=== PATIENT | female | born 1990 | race Caucasian/White ===

== ENCOUNTER → 2020-03-20 15:30 | Outpatient (BNVA) | payer MEDICAID, SELFPAY | PROVIDERS: Visit Provider Nurse Practitioner Women's Health | DX: Z01.419 Encounter for gynecological examination (general) (routine) without abnormal findings (principal); Z30.9 Encounter for contraceptive management, unspecified; Z30.41 Encounter for surveillance of contraceptive pills | CPT/HCPCS: 88175 ==

== ENCOUNTER → 2021-06-12 13:36 | Outpatient (BNVA) | payer MEDICAID, SELFPAY | PROVIDERS: Visit Provider Nurse Practitioner Women's Health | DX: N91.2 Amenorrhea, unspecified (principal); N92.6 Irregular menstruation, unspecified | CPT/HCPCS: 81025 ==

== ENCOUNTER 2021-07-01 08:13 | Outpatient (CLI) | payer MEDICAID, SELFPAY ==
--- NOTE | 2021-07-01 08:45 | US_ITS ---
WS: [id number] ULTRASOUND EARLY TECHNIQUE: Transabdominal sonography of the pelvis was performed. Followed by transvaginal sonography to better evaluate the uterus and ovaries. CLINICAL INFORMATION: Z78.9 - Other specified health status Beta hCG: Unknown. COMPARISON: None. FINDINGS: Small amount of fluid in the cervical canal. UTERUS AND GESTATIONAL SAC Intrauterine gestations: Retroverted uterus Single live intrauterine . Mean gestational sac diameter: 3.9 cm; Estimated gestational age: 10 weeks 3 days Estimated delivery January 24, 2022 Yolk sac: 0.5 cm. University rump length (CRL): 3.5 cm. heart motion: 164 BPM. Subchorionic hemorrhage: None. OVARIES Right ovary: Normal. Left ovary: Not seen FREE FLUID None. US/US OB <=14 wk fetus w transvag IMPRESSION: 1. Single live intrauterine . 2. Estimated gestational age; 10 weeks 3 days with estimated delivery January 3. Retroverted uterus 4. Gestational sac with yolk sac and pole. 5. Normal right ovary. Left ovary not visualized. 6. No free fluid in the cul-de-sac.
== END 2021-07-01 08:14 | disposition home or self-care (01) ==
LOC: RAD 08:18
PROVIDERS: Visit Provider Obstetrics & Gynecology
DX: Z36.87 Encounter for antenatal screening for uncertain dates (principal); Z3A.10 10 weeks gestation of pregnancy; N85.4 Malposition of uterus
CPT/HCPCS: 76801; 76817

== ENCOUNTER → 2021-07-03 10:43 | Outpatient (BNVA) | payer MEDICAID, SELFPAY | PROVIDERS: Visit Provider Nurse Practitioner Women's Health | DX: O99.211 Obesity complicating pregnancy, first trimester (principal) | CPT/HCPCS: 81000; 87086 ==

== ENCOUNTER → 2021-07-10 09:00 | Outpatient (BNVA) | payer MEDICAID, SELFPAY | PROVIDERS: Visit Provider Obstetrics & Gynecology | DX: Z34.80 Encounter for supervision of other normal pregnancy, unspecified trimester (principal) | CPT/HCPCS: 80307; 80500; 81000; 82950; 85025; 86592; 86762; 86803; 86850; 86870; 86900; 86902; 87086; 87340; 87491; 87591; 87661; 88175 ==

== ENCOUNTER → 2021-08-01 13:32 | Outpatient (BNVA) | payer MEDICAID, SELFPAY | PROVIDERS: Visit Provider Obstetrics & Gynecology | DX: Z34.80 Encounter for supervision of other normal pregnancy, unspecified trimester (principal) | CPT/HCPCS: 81000 ==

== ENCOUNTER → 2021-08-07 13:54 | Outpatient (BNVA) | payer MEDICAID, SELFPAY | PROVIDERS: Visit Provider Obstetrics & Gynecology | DX: Q99.8 Other specified chromosome abnormalities (principal) | CPT/HCPCS: 86886 ==

== ENCOUNTER → 2021-08-19 10:01 | Outpatient (BNVA) | payer MEDICAID, SELFPAY | PROVIDERS: Visit Provider Nurse Practitioner Women's Health | DX: O99.211 Obesity complicating pregnancy, first trimester (principal); Q99.8 Other specified chromosome abnormalities; Z87.59 Personal history of other complications of pregnancy, childbirth and the puerperium | CPT/HCPCS: 81000 ==

== ENCOUNTER → 2021-09-19 07:59 | Outpatient (BNVA) | payer MEDICAID, SELFPAY | PROVIDERS: Visit Provider Obstetrics & Gynecology | DX: Z34.80 Encounter for supervision of other normal pregnancy, unspecified trimester (principal) | CPT/HCPCS: 81000 ==

== ENCOUNTER 2021-10-13 12:30 | Outpatient (CLI) | payer MEDICAID, SELFPAY ==
[2021-10-13] VITALS (9 sets, daily range): BP systolic 110–132; BP diastolic 58–68; PULSE 75–88; RESP 15; TEMP 36.7; BMI 41.3
[2021-10-13 13:27] LABS: Basophils % 0.4 %; Eosinophils # 0.1 10^3/uL (0.0-0.8); Eosinophils % 0.6 %; Hematocrit 36.2 % (37.0-47.0); Hemoglobin 11.8 g/dL (11.5-15.3); Lymphocytes # 1.9 10^3/uL (0.8-4.8); Lymphocytes % 16.9 %; Mean Corpuscular HGB Conc 32.6 g/dL (30.0-36.0); Mean Corpuscular Hemoglobin 30.4 pg (28.0-34.0); Mean Corpuscular Volume 93.3 fl (81-99); Mean Platelet Volume 10.5 fL (7.4-10.4); Monocytes # 0.6 10^3/uL (0.2-0.9); Monocytes % 5.7 %; Neutrophils % 75.8 %; Nucleated Red Blood Cells % 0 %; Platelet Count 230 10^3/cmm (130-400); Red Blood Count 3.88 10^6/uL (4.1-5.3); Red Cell Distribution Width 13.6 % (12.1-15.1); White Blood Count 11.2 10^3/uL (4.0-10.0)
[2021-10-13 13:58] LABS: Add Urine Microscopic? YES; Bacteria Urine TRACE /hpf; Bilirubin Urine Neg (Negative); Blood Urine Trace (Negative); Glucose Urine UA Norm (Normal); Ketones Urine Negative (Negative); Leukocyte Esterase Urine Negative (Negative); Nitrate Urine Negative (Negative); Protein Urine Neg (Negative); RBC Urine 0-4 /hpf (0-2); Specific Gravity, Urine 1.015 (1.005-1.030); Urine Appearance Cloudy (CLEAR); Urine Color Straw (Yellow); Urobilinogen Urine Norm (Negative); WBC Urine 0-4 /hpf (0-5); pH Urine 5 (5-7)
[2021-10-13 13:59] LABS: Add Urine Culture? No
[2021-10-13 14:21] LABS: Urine Creatinine 43 mg/dL (28-217); Urine Protein Random 12 mg/dL
[2021-10-13 14:23] LABS: UPRO/UCREAT Ratio 0.28 mg/mg CR
[2021-10-13 14:24] LABS: Alanine Aminotransferase 21 U/L (0-33); Albumin Level 3.7 g/dL (3.5-5.2); Alkaline Phosphatase 76 IU/L (35-105); Anion Gap 18.6 (5-19); Aspartate Amino Transferase 17 U/L (0-32); Blood Urea Nitrogen 4 mg/dL (6-20); Calcium 8.4 mg/dL (8.5-10.5); Carbon Dioxide 19 mmol/L (22-29); Chloride 104 mmol/L (98-107); Globulin 2.9 g/dL (1.3-4.6); Glomerular Filtration Rate 145.9 mL/min (90-130); Glucose 80 mg/dL (65-115); Osmolality Calculated 282 mOsm/kg (285-295); Potassium 3.6 mmol/L (3.5-5.1); Sodium 138 mmol/L (136-145); Total Bilirubin 0.2 mg/dL (0.15-1.2); Total Protein 6.6 g/dL (6.6-8.7); Uric Acid 4.2 mg/dL (2.4-5.7)
== END 2021-10-13 14:51 | disposition home or self-care (01) ==
LOC: OPOB 12:37 → OBGYN 12:38
PROVIDERS: Visit Provider Obstetrics & Gynecology
DX: O16.9 Unspecified maternal hypertension, unspecified trimester (principal)
CPT/HCPCS: 36415; 80053; 81000; 81001; 82570; 84156; 84550; 85025; 87086; 99211

== ENCOUNTER → 2021-11-10 11:34 | Outpatient (BNVA) | payer MEDICAID, SELFPAY | PROVIDERS: Visit Provider Obstetrics & Gynecology | DX: Z34.80 Encounter for supervision of other normal pregnancy, unspecified trimester (principal) | CPT/HCPCS: 81000; 82950; 85025 ==

== ENCOUNTER → 2021-11-19 08:38 | Outpatient (BNVA) | payer MEDICAID, SELFPAY | PROVIDERS: Visit Provider Obstetrics & Gynecology | DX: Z34.80 Encounter for supervision of other normal pregnancy, unspecified trimester (principal) | CPT/HCPCS: 82951; 82952 ==

== ENCOUNTER → 2021-11-24 08:07 | Outpatient (BNVA) | payer MEDICAID, SELFPAY | PROVIDERS: Visit Provider Obstetrics & Gynecology | DX: Z34.80 Encounter for supervision of other normal pregnancy, unspecified trimester (principal) | CPT/HCPCS: 81000; 87086 ==

== ENCOUNTER → 2021-12-08 11:15 | Outpatient (BNVA) | payer MEDICAID, SELFPAY | PROVIDERS: Visit Provider Obstetrics & Gynecology | DX: Z34.80 Encounter for supervision of other normal pregnancy, unspecified trimester (principal) | CPT/HCPCS: 81000; 87086 ==

== ENCOUNTER → 2021-12-22 10:17 | Outpatient (BNVA) | payer MEDICAID, SELFPAY | PROVIDERS: Visit Provider Obstetrics & Gynecology | DX: Z34.80 Encounter for supervision of other normal pregnancy, unspecified trimester (principal) | CPT/HCPCS: 81000 ==

== ENCOUNTER → 2021-12-29 10:22 | Outpatient (BNVA) | payer MEDICAID, SELFPAY | PROVIDERS: Visit Provider Obstetrics & Gynecology | DX: Z34.80 Encounter for supervision of other normal pregnancy, unspecified trimester (principal); Q99.8 Other specified chromosome abnormalities; Z87.59 Personal history of other complications of pregnancy, childbirth and the puerperium | CPT/HCPCS: 81000; 87081 ==

== ENCOUNTER → 2022-01-05 11:18 | Outpatient (BNVA) | payer MEDICAID, SELFPAY | PROVIDERS: Visit Provider Obstetrics & Gynecology | DX: Z34.80 Encounter for supervision of other normal pregnancy, unspecified trimester (principal) | CPT/HCPCS: 81000; 84156; 87086 ==

== ENCOUNTER 2022-01-12 19:02 | Inpatient (IN) | payer MEDICAID, SELFPAY ==
[2022-01-12] VITALS (150 sets, daily range): BP systolic 104–183; BP diastolic 57–96; PULSE 81–114; RESP 17; TEMP 36.1–36.7; O2SAT 90–100; BMI 42.0
[2022-01-12 12:54] LABS: Basophils % 0.4 %; Eosinophils % 0.4 %; Hematocrit 36.6 % (37.0-47.0); Hemoglobin 11.7 g/dL (11.5-15.3); Lymphocytes # 2.2 10^3/uL (0.8-4.8); Lymphocytes % 19.7 %; Mean Corpuscular Hemoglobin 29.7 pg (28.0-34.0); Mean Corpuscular Volume 92.9 fl (81-99); Mean Platelet Volume 12.1 fL (7.4-10.4); Monocytes # 0.8 10^3/uL (0.2-0.9); Monocytes % 7.6 %; Neutrophils # 7.77 10^3/uL (1.8-7.7); Neutrophils % 70.7 %; Nucleated Red Blood Cells % 0 %; Platelet Count 186 10^3/cmm (130-400); Red Blood Count 3.94 10^6/uL (4.1-5.3); Red Cell Distribution Width 14.5 % (12.1-15.1)
[2022-01-12 13:16] LABS: Alanine Aminotransferase 15 U/L (0-33); Albumin Level 3.2 g/dL (3.5-5.2); Alkaline Phosphatase 191 IU/L (35-105); Anion Gap 16.1 (5-19); Aspartate Amino Transferase 21 U/L (0-32); Blood Urea Nitrogen 7 mg/dL (6-20); Calcium 9.3 mg/dL (8.5-10.5); Carbon Dioxide 19 mmol/L (22-29); Chloride 105 mmol/L (98-107); Globulin 3.4 g/dL (1.3-4.6); Glomerular Filtration Rate 145.9 mL/min (90-130); Glucose 96 mg/dL (65-115); Osmolality Calculated 280 mOsm/kg (285-295); Potassium 4.1 mmol/L (3.5-5.1); Sodium 136 mmol/L (136-145); Total Bilirubin 0.4 mg/dL (0.15-1.2); Total Protein 6.6 g/dL (6.6-8.7); Uric Acid 5.5 mg/dL (2.4-5.7)
[2022-01-12 13:29] LABS: Blood Urine 2+ (Negative); Glucose Urine UA Norm (Normal); Ketones Urine Negative (Negative); Nitrate Urine Negative (Negative); Protein Urine 1+ (Negative); Urine Appearance Hazy (CLEAR); Urine Color Yellow (Yellow); pH Urine 7 (5-7)
[2022-01-12 13:30] LABS: Add Urine Culture? No; Add Urine Microscopic? YES; Bacteria Urine 1+ /hpf; Bilirubin Urine Neg (Negative); Leukocyte Esterase Urine 2+ (Negative); Urobilinogen Urine Norm (Negative)
[2022-01-12 13:46] LABS: Urine Creatinine 96 mg/dL (28-217)
[2022-01-12 13:47] LABS: Urine Protein Random 182 mg/dL
[2022-01-12 14:14] LABS: Squamous Epithelial Cell Urine 15-25 /hpf (0-5)
[2022-01-12 14:44] LABS: Urine Creatinine 44 mg/dL (28-217)
[2022-01-12 15:01] LABS: UPRO/UCREAT Ratio 0.93 mg/mg CR; Urine Protein Random 41 mg/dL
[2022-01-12] MEDS: dextrose 5%-lactated ringers 1,000 ML 125 ML IV (15:53)
[2022-01-12] MEDS: magnesium sulfate premix 4 GM/100 ML PREMIX IV (15:53)
[2022-01-12] MEDS: magnesium sulfate premix 20 GM/500 ML BAG IV (16:25)
[2022-01-12] MEDS: oxytocin 30 UNIT/500 ML BAG IV (16:30)
[2022-01-12] MEDS: labetalol 5 mg/mL SDV 20mL 20 MG IVP (19:44)
[2022-01-12 21:12] LABS: Adenovirus Not Detected (NOT DETECT); Chlamydia Pneumoniae Not Detected (NOT DETECT); Coronavirus 229E,HKU1,NL63,OC4 Not Detected (NOT DETECT); Human Metapneumovirus Not Detected (NOT DETECT); Human Rhinovirus/Enterovirus Not Detected (NOT DETECT); Influenza A Not Detected (NOT DETECT); Influenza A H1 Not Detected (NOT DETECT); Influenza A H1-2009 Not Detected (NOT DETECT); Influenza A H3 Not Detected (NOT DETECT); Influenza B Not Detected (NOT DETECT); Mycoplasma Pneumoniae Not Detected (NOT DETECT); Parainfluenza Virus Type 1 Not Detected (NOT DETECT); Parainfluenza Virus Type 2 Not Detected (NOT DETECT); Parainfluenza Virus Type 3 Not Detected (NOT DETECT); Parainfluenza Virus Type 4 Not Detected (NOT DETECT); Respiratory Syncytial Virus A Not Detected (NOT DETECT); Respiratory Syncytial Virus B Not Detected (NOT DETECT); SARS-COV-2 Detected (NOT DETECT)
[2022-01-12 21:20] LABS: Magnesium Level (OB Only) 4.7 mg/dL (5.0-7.5)
[2022-01-13] VITALS (400 sets, daily range): BP systolic 117–185; BP diastolic 61–116; PULSE 83–193; RESP 16–17; TEMP 35.6–36.9; O2SAT 83–100
[2022-01-13] MEDS: magnesium sulfate premix 20 GM/500 ML BAG IV ×3 (02:04→23:12)
[2022-01-13] MEDS: alum-mag-hydroxide-sime 30 mL UDC PO (02:58)
[2022-01-13 03:39] LABS: Magnesium Level (OB Only) 5.6 mg/dL (5.0-7.5)
[2022-01-13] MEDS: dextrose 5%-lactated ringers 1,000 ML 70 ML IV (05:15)
[2022-01-13] MEDS: ondansetron 2 mg/ML SDV 2 mL 4 MG IVP (05:43)
--- NOTE | 2022-01-13 07:04 | PM.OPHPUD ---
Labor & Delivery H&P Update Date of Procedure: January 13, 2022 Date H&P Performed: 01/12/22 H&P update information: I have reviewed H&P completed within last 30 days, I have examined patient prior to procedure and Changes to prior documentation as noted here Changes to previous documentation: The patient has developed preeclampsia. She has elevated blood pressures and urine/protein creatinine ratio of 0.93. She will be admitted for induction of labor. Admission Diagnosis: iup @38w3d, mild preeclampsia Related Problem List Diagnoses (1) History of hemorrhage: (2) Anti-LKM antibody positive: (3) Obesity affecting : (4) Supervision of other normal : (5) Fetus conceived on control: (6) Mild preeclampsia:
[2022-01-13] MEDS: fentaNYL 50 mcg/mL INJ 2mL IVP (12:01)
[2022-01-13] MEDS: lidocaine 2% INJ 20 mL INJECTION (15:15)
[2022-01-13] MEDS: miSOPROStol 200 mcg Tablet 800 MCG PR (15:20)
--- NOTE | 2022-01-13 16:55 | P.PCNOB_ITS ---
Delivery Note: Date of delivery: January 13, 2022 - PRE-DELIVERY DIAGNOSIS: 31-year-old 2 para 1-0-0-1 at 38 weeks and 3 days Preeclampsia with severe blood pressure elevations Positive antibodies Obesity with a BMI of 42 history of hemorrhage with history of transfusion POST-DELIVERY DIAGNOSIS: Vaginal delivery on 01/13/2022 Preeclampsia with severe blood pressure elevations PROCEDURE: Vaginal delivery on 01/13/2022 ANESTHESIA: Local anesthesia with 2% lidocaine DELIVERING PHYSICIAN: Karly Nascimento FACOG PRE-DELIVERY COURSE: Ms. Sanabria is a 31-year-old 2 para 1-0-0-1 at 38 weeks and 2 days who was sent to labor and delivery on 01/12/2022 from clinic with an elevated blood pressure. She was evaluated on Labor and Delivery and blood pressures were all elevated in the 140s to 150s over 90s and lab work was all within normal limits except for protein creatinine ratio which was elevated at 0.9 confirming preeclampsia. She was started on magnesium sulfate for seizure prophylaxis and Cat catheter was placed. Decision was made to admit patient and induce. Cervix was 4 cm 40% effaced and -4 station, cephalic tracing was overall category 1. She was malik every 3 to 4 minutes however made no cervical change. She was started on Pitocin for induction of labor. Pitocin was continued from 4:30 PM to 5 AM on 01/13/2022 and was titrated to a maximum of 8 mIU. She made no cervical change. Pitocin was turned off and she was given the therapeutic rest for 4 hours. She did have a history significant for positive antibodies and also had a history of hemorrhage with her first delivery requiring 4 units of blood. As a result she was crossmatched for 2 units in the event that she would require more blood. -Blood pressures overall remained elevated but not in the severe range and she just required a single dose of IV labetalol during her induction process. Induction was continued on 01/13/2022 with Pitocin which was restarted at 8 AM and titrated to a maximum of 18 mIU. With this she started to have regular contractions and was uncomfortable and received IV fentanyl for pain control. She did have spontaneous rupture of membranes at 1252 with clear fluid. At this time she was 6 cm 80% and -2 station with a head well applied tracing remained category 1. She made rapid cervical change after this and was fully dilated at 3 PM and was set up in lithotomy position. DELIVERY NOTE: She was set up in lithotomy position and was pushing effectively. She was noted to be +3 station and continued pushing well. The head delivered in THOMAS position, nuchal cord x1 was present. It was tight and unable to be reduced .The shoulders and rest of the body followed with her next push. The baby's mouth and nose were suctioned and the baby was placed on the mother's belly. Once cord pulsations stopped the cord was clamped and cut. The placenta delivered spontaneously intact with membranes and was discarded. The fundus was noted to be boggy. She was given a dose of Hemabate and 800 mcg of Cytotec was placed per rectum and uterine massage was continued and with this the fundal tone improved and bleeding decreased. The vagina and cervix were inspected and no cervical or sulcal lacerations were noted. She had a first-degree vaginal laceration was repaired with a [id number] suture. She had periclitoral tear which was repaired with 3-0 Vicryl on an SH needle in a continuous interlocking fashion and good hemostasis and reapproximation was obtained. Baby girl born at 3:07 PM on 01/13/2022 with 8/9, weighing 8 pounds 9 ounces, 21 inches long. Placenta was delivered at 3:13 PM on 01/13/2022 value . Cotyledons were intact , centrally inserted umbilical cord with 3 vessels noted. Estimated blood loss 400 mL. Complications-none, both baby and mother were left to recover in a stable condition. Plan is for patient to receive 24 hours of magnesium sulfate . This documentation was created by [employer] organizational consultant software (known for inherent organizational consultant error). Every effort was made to assure accuracy of organizational consultant. Any obvious errors or omissions should be clarified with the author of the document. History History History 2 Term 1 Miscarriages/Ectopic 0 0 Living Children 1 Coding Level of Care Code Acute Pearl Stringer for Nereida Major
[2022-01-13] MEDS: HYDROcodone-acetaminophen 5-325 mg Tablet PO (17:39)
[2022-01-13] MEDS: docusate sodium 100 mg Capsule PO (17:39)
[2022-01-13 18:03] LABS: Magnesium Level (OB Only) 6.3 mg/dL (5.0-7.5)
--- NOTE | 2022-01-13 18:50 | PC.NURSE ---
changed pad, moderately saturated, pad been on pt since delivery 1507, no clots
[2022-01-13] MEDS: carboprost tromethamine 250 mcg/mL Amp IM (20:07)
--- NOTE | 2022-01-13 20:31 | PC.NURSE ---
Dr. Nascimento called to notify this nurse that Dr. Nava will be covering for the night and she also reminded this nurse of the protocols in place. Dr. Nascimento also ordered to return blood to lab after 12 hours if bleeding had been well controlled.
[2022-01-13] MEDS: dextrose 5%-lactated ringers 1,000 ML 75 ML IV (20:50)
[2022-01-14] VITALS (155 sets, daily range): BP systolic 117–153; BP diastolic 60–90; PULSE 53–117; RESP 16; TEMP 36.3; O2SAT 91–100
[2022-01-14 00:07] LABS: Magnesium Level (OB Only) 6.5 mg/dL (5.0-7.5)
[2022-01-14 05:00] LABS: Hematocrit 33.5 % (37.0-47.0); Hemoglobin 10.8 g/dL (11.5-15.3); Mean Corpuscular HGB Conc 32.2 g/dL (30.0-36.0); Mean Corpuscular Hemoglobin 29.8 pg (28.0-34.0); Mean Corpuscular Volume 92.5 fl (81-99); Mean Platelet Volume 11.5 fL (7.4-10.4); Platelet Count 187 10^3/cmm (130-400); Red Blood Count 3.62 10^6/uL (4.1-5.3); Red Cell Distribution Width 14.9 % (12.1-15.1); White Blood Count 11.4 10^3/uL (4.0-10.0)
--- NOTE | 2022-01-14 05:26 | PC.NURSE ---
Pad Count 01/13/22 1900 through 01/14/22 0500 2300 - 0.075 kg - 1 pad 0500 - 0.04 kg - 1 pad
[2022-01-14 05:46] LABS: Magnesium Level (OB Only) 6.4 mg/dL (5.0-7.5)
--- NOTE | 2022-01-14 08:19 | P.PN_ITS ---
Subjective Subjective: SUBJECTIVE: Ms. Sanabria is doing okay today. She denies heavy vaginal bleeding. Is doing okay on the magnesium and is breast-feeding and bonding well with her daughter. She denies headaches, visual changes, nausea, vomiting, fever, chills and shortness of breath. SCDs and Cat catheter are in place. She is looking forward for the magnesium to be stopped. OBJECTIVE/PHYSICAL EXAM: Gen.: No acute distress Heart: S1-S2 heard, regular rate and rhythm Lungs: Clear to auscultation bilaterally Abdomen: Soft, fundus firm below umbilicus, Legs: No calf tenderness, trace bilateral pitting pedal edema. ASSESSMENT AND PLAN: 31-year-old 2 para 2 status post vaginal delivery on 01/13/2022, day #1 Preeclampsia with severe features--on magnesium 24 hours Obesity with a BMI of 42 -Continue magnesium sulfate for 24 hours -patient is diuresing well with urine output of 200 to 300 mL/h-anticipate discontinuing magnesium sulfate at the 24-hour mago and stopping catheter and Hep-Lock IV -Ambulation after that -Continue to monitor blood pressure to see if she needs p.o. antihypertensive medication -Anticipate discharge home in the next 24 to 48 hours depending upon blood pressure control -Regular diet once magnesium is discontinued. Vitals/I&O/Wt Last Vital Signs Temp 97.6 F 01/13/22 17:00 Pulse 93 01/14/22 08:08 Resp 16 01/13/22 17:00 BP 149/81 01/14/22 08:06 Pulse Ox 99 01/14/22 08:08 01/13/22 01/14/22 01/14/22 22:59 06:59 14:59 Intake Total 1500 / 2050 Output Total 950 / 1375 2100 / 3475 250 / 250 Balance 550 / 675 -2100 / -1425 -250 / -250 Weight last 48 hrs Weight 237 lb Physical Exam Urinary Catheter Management: Cat: Cath Placed During This Visit: yes Reason for Continuing Indwelling Catheter: Accurate Measurement of Urinary Output in Critically Ill Patients Urinary Catheter Date of Insertion: 01/12/22 Urinary Catheter Time of Insertion: 16:00 Data : 01/14/22 04:45 01/12/22 12:32 Attestations Medical Necessity Statement*: Patient will need to stay 1-2 more midnights to recover from delivery. Coding Level of Care Code Acute Sweeper Brush Maker Machine for Nereida Major
[2022-01-14] MEDS: prenatal vitamin Capsule 1 CAP PO (10:12)
[2022-01-14] MEDS: magnesium sulfate premix 20 GM/500 ML BAG IV (10:12)
[2022-01-14] MEDS: docusate sodium 100 mg Capsule PO ×2 (10:12→19:40)
[2022-01-14] MEDS: ibuprofen 800 mg tablet PO ×2 (10:12→20:39)
[2022-01-14 11:07] LABS: Magnesium Level (OB Only) 6.2 mg/dL (5.0-7.5)
[2022-01-14] MEDS: benzocaine-menthol 78 gm Canister 1 SPRAY TOPICAL (19:40)
[2022-01-15] VITALS (14 sets, daily range): BP systolic 126–173; BP diastolic 68–81; PULSE 68–86; RESP 15; TEMP 36.3–36.7
[2022-01-15] MEDS: prenatal vitamin Capsule 1 CAP PO (08:59)
[2022-01-15] MEDS: docusate sodium 100 mg Capsule PO ×2 (08:59→21:01)
[2022-01-15] MEDS: ibuprofen 800 mg tablet PO ×3 (08:59→21:01)
[2022-01-15] MEDS: labetalol 200 mg Tablet 100 MG PO ×2 (13:25→21:00)
--- NOTE | 2022-01-15 13:40 | PM.PN ---
Subjective Subjective: SUBJECTIVE: Ms. Sanabria is doing well today. She denies heavy vaginal bleeding, nausea, vomiting, fever, chills, shortness of breath. She states that she feels completely fine and does not understand why her blood pressure is elevated. She just wants to go home. She denies any preeclamptic symptoms OBJECTIVE/PHYSICAL EXAM: Gen.: No acute distress Heart: S1-S2 heard, regular rate and rhythm Lungs: Clear to auscultation bilaterally Abdomen: Soft, fundus firm below umbilicus, Legs: No calf tenderness, +1 pitting pedal edema. ASSESSMENT AND PLAN: 31-year-old 2 para 2 status post vaginal delivery on 01/13/2022, day #2 -Overall doing well -Severe preeclampsia with elevated blood pressures now-we will start labetalol 100 mg twice daily and anticipate discharge home tomorrow to ensure that the medication started controls her blood pressure well. This was discussed with patient and all her questions were answered -Continue routine care -COVID-overall stable and asymptomatic with normal O2 sat Vitals/I&O/Wt Last Vital Signs Temp 97.3 F L 01/15/22 10:39 Pulse 86 01/15/22 13:00 Resp 15 01/15/22 04:26 BP 173/79 01/15/22 13:00 Pulse Ox 100 01/14/22 15:07 01/14/22 01/15/22 01/15/22 22:59 06:59 14:59 Intake Total 257.5 / 1757.5 Output Total 700 / 2250 Balance -442.5 / -492.5 Physical Exam Urinary Catheter Management: Cat: Cath Placed During This Visit: yes Reason for Continuing Indwelling Catheter: Accurate Measurement of Urinary Output in Critically Ill Patients Urinary Catheter Date of Insertion: 01/12/22 Urinary Catheter Time of Insertion: 16:00 Data : 01/14/22 04:45 01/12/22 12:32 Micro: Microbiology 01/12/22 14:05 Urine Culture - Final Urine Catheterized Attestations Medical Necessity Statement*: Patient needs to stay 1-2 more midnights to recover from delivery and preeclampsia Coding Level of Care Code Acute Aircraft Quality Control Inspector for Nereida Major
[2022-01-16] VITALS (10 sets, daily range): BP systolic 133–161; BP diastolic 71–82; PULSE 72–80; RESP 15–17; TEMP 36.4–36.5
[2022-01-16] MEDS: prenatal vitamin Capsule 1 CAP PO (08:36)
[2022-01-16] MEDS: docusate sodium 100 mg Capsule PO (08:36)
[2022-01-16] MEDS: labetalol 200 mg Tablet 100 MG PO (08:36)
[2022-01-16] MEDS: ibuprofen 800 mg tablet PO (08:36)
--- NOTE | 2022-01-16 09:14 | PM.OBGYDC ---
Discharge Providers CRIMINAL RESEARCH SPECIALIST Date of Admission: 01/12/22 19:02 Date of Discharge: 01/16/22 Attending Provider at Admission: Steph Nava MD Attending Provider at Discharge: genny PRE-DELIVERY DIAGNOSIS: 31-year-old 2 para 1-0-0-1 at 38 weeks and 3 days Preeclampsia with severe blood pressure elevations Positive antibodies Obesity with a BMI of 42 history of hemorrhage with history of transfusion POST-DELIVERY DIAGNOSIS: Vaginal delivery on 01/13/2022 Preeclampsia with severe blood pressure elevations PROCEDURE: Vaginal delivery on 01/13/2022 ANESTHESIA: Local anesthesia with 2% lidocaine DELIVERING PHYSICIAN: Karly Nascimento FACOG PRE-DELIVERY COURSE: Ms. Sanabria is a 31-year-old 2 para 1-0-0-1 at 38 weeks and 2 days who was sent to labor and delivery on 01/12/2022 from clinic with an elevated blood pressure.? She was evaluated on Labor and Delivery and blood pressures were all elevated in the 140s to 150s over 90s and lab work was all within normal limits except for protein creatinine ratio which was elevated at 0.9 confirming preeclampsia.? She was started on magnesium sulfate for seizure prophylaxis and Cat catheter was placed.? Decision was made to admit patient and induce.? Cervix was 4 cm 40% effaced and -4 station, cephalic tracing was overall category 1.? She was malik every 3 to 4 minutes however made no cervical change.? She was started on Pitocin for induction of labor.? Pitocin was continued from 4:30 PM to 5 AM on 01/13/2022 and was titrated to a maximum of 8 mIU.? She made no cervical change.? Pitocin was turned off and she was given the therapeutic rest for 4 hours.? She did have a history significant for positive antibodies and also had a history of hemorrhage with her first delivery requiring 4 units of blood.? As a result she was crossmatched for 2 units in the event that she would require more blood. -Blood pressures overall remained elevated but not in the severe range and she just required a single dose of IV labetalol during her induction process.? Induction was continued on 01/13/2022 with Pitocin which was restarted at 8 AM and titrated to a maximum of 18 mIU.? With this she started to have regular contractions and was uncomfortable and received IV fentanyl for pain control.? She did have spontaneous rupture of membranes at 1252 with clear fluid.? At this time she was 6 cm 80% and -2 station with a head well applied? tracing remained category 1.? She made rapid cervical change after this and was fully dilated at 3 PM and was set up in lithotomy position. DELIVERY? NOTE: She was set up in lithotomy position and was pushing effectively. She was noted to be? +3 station and continued pushing well. The head delivered in THOMAS position, nuchal cord x1 was present.? It was tight and unable to be reduced .The shoulders and rest of the body followed with her next push. The baby's mouth and nose were suctioned and the baby was placed on the mother's belly.? Once cord pulsations stopped the cord was clamped and cut.? The placenta delivered spontaneously intact with membranes and was discarded. The fundus was noted to be boggy.? She was given a dose of Hemabate and 800 mcg of Cytotec was placed per rectum and uterine massage was continued and with this the fundal tone improved and bleeding decreased.? The vagina and cervix were inspected and no cervical or sulcal lacerations were noted.? She had a first-degree vaginal laceration was repaired with a [id number] suture.? She had periclitoral tear which was repaired with 3-0 Vicryl on an SH needle in a continuous interlocking fashion and good hemostasis and reapproximation was obtained. Baby girl born at 3:07 PM on 01/13/2022 with 8/9, weighing 8 pounds 9 ounces, 21 inches long. Placenta was delivered at 3:13 PM on 01/13/2022 value . Cotyledons were intact , centrally inserted umbilical cord with 3 vessels noted. Estimated blood loss 400 mL. Complications-none, both baby and mother were left to recover in a stable condition.? Plan is for patient to receive 24 hours of magnesium sulfate . HOSPITAL COURSE: She underwent an uncomplicated vaginal delivery on 01/13/2022. She received magnesium sulfate for 24 hours post delivery for seizure prophylaxis and during this time SCDs and Cat catheter were in place. Blood pressures were largely within normal range and she denied any problems. She had good urine output and diuresed well. After 24 hours magnesium sulfate was discontinued. She did well on day 1 and was ambulating well, tolerating regular diet, voiding freely, passing flatus. She was breast-feeding without difficulty and bonding well with her daughter. Pain was well-controlled with by mouth pain medication. She denied nausea, vomiting, fever, chills, shortness of breath, leg pain. She had moderate vaginal bleeding. On day # 2 she continued to do well and had a stable hemoglobin of 10.8. Her blood pressure however was elevated in the severe range in the 160s to 170s and as a result decision was made to watch her for another day and she was started on labetalol 100 mg twice daily. With this her blood pressure return to largely normal levels ranging in the 130s to 140s over 80s. She denied any other preeclamptic symptoms. She was discharged home on day 3 in a stable condition. Warning signs for endometritis, preeclampsia, mastitis, DVT/PE were reviewed with her. Post delivery activity restrictions were also reviewed with her at all her questions were answered to her satisfaction. She is undecided about contraception and will discuss this with Dr. Nava at her visit. She will monitor her blood pressures 2 times a day and bring this log to her 1 week blood pressure check. EXAM AT DISCHARGE: Gen.: No acute distress Heart: S1-S2 heard, regular rate and rhythm Lungs: Clear to auscultation bilaterally Abdomen: Soft, fundus firm below umbilicus, Legs: No calf tenderness, +1 bilateral pitting pedal edema. CONDITION AT DISCHARGE: Stable This documentation was created by [employer] burning machine operator software (known for inherent burning machine operator error). Every effort was made to assure accuracy of burning machine operator. Any obvious errors or omissions should be clarified with the author of the document. Diagnoses at Discharge Discharge Diagnosis (1) History of hemorrhage: Status: Acute (2) Anti-LKM antibody positive: Status: Acute (3) Obesity affecting : Status: Acute Qualifiers: Trimester: first trimester Qualified Code(s): O99.211 - Obesity complicating , first trimester (4) Supervision of other normal : Status: Acute (5) Fetus conceived on control: Status: Acute (6) Mild preeclampsia: Status: Acute Reason for Visit Reason for Visit: pre eclamptic workup Information Peripartum Data: Delivery Method: Vaginal Physical Exam Urinary Catheter Management: Cat: Cath Placed During This Visit: yes Reason for Continuing Indwelling Catheter: Accurate Measurement of Urinary Output in Critically Ill Patients Urinary Catheter Date of Insertion: 01/12/22 Urinary Catheter Time of Insertion: 16:00 History History History 2 Term 1 Miscarriages/Ectopic 0 0 Living Children 1 Discharge Data Studies Completed and Pending Laboratory Results WBC 11.4 10^3/uL (4.0-10.0) H 01/14/22 04:45 RBC 3.62 10^6/uL (4.1-5.3) L 01/14/22 04:45 Hgb 10.8 g/dL (11.5-15.3) L 01/14/22 04:45 Hct 33.5 % (37.0-47.0) L 01/14/22 04:45 MCV 92.5 fl (81-99) 01/14/22 04:45 MCH 29.8 pg (28.0-34.0) 01/14/22 04:45 MCHC 32.2 g/dL (30.0-36.0) 01/14/22 04:45 RDW 14.9 % (12.1-15.1) 01/14/22 04:45 Plt Count 187 10^3/cmm (130-400) 01/14/22 04:45 MPV 11.5 fL (7.4-10.4) H 01/14/22 04:45 Neut % (Auto) 70.7 % 01/12/22 12:32 Lymph % (Auto) 19.7 % 01/12/22 12:32 [place] % (Auto) 7.6 % 01/12/22 12:32 Eos % (Auto) 0.4 % 01/12/22 12:32 Baso % (Auto) 0.4 % 01/12/22 12:32 Neut # (Auto) 7.77 10^3/uL (1.8-7.7) H 01/12/22 12:32 Lymph # (Auto) 2.2 10^3/uL (0.8-4.8) 01/12/22 12:32 [place] # (Auto) 0.8 10^3/uL (0.2-0.9) 01/12/22 12:32 Eos # (Auto) 0.0 10^3/uL (0.0-0.8) 01/12/22 12:32 Baso # (Auto) 0.0 10^3/uL (0.0-0.1) 01/12/22 12:32 Nucleated RBC % (auto) 0 % 01/12/22 12:32 Nucleated RBCs # 0.0 /100WBC 01/12/22 12:32 Sodium 136 mmol/L (136-145) 01/12/22 12:32 Potassium 4.1 mmol/L (3.5-5.1) 01/12/22 12:32 Chloride 105 mmol/L (98-107) 01/12/22 12:32 Carbon Dioxide 19 mmol/L (22-29) L 01/12/22 12:32 Anion Gap 16.1 (5-19) 01/12/22 12:32 BUN 7 mg/dL (6-20) 01/12/22 12:32 Creatinine 0.5 mg/dL (0.5-0.9) 01/12/22 12:32 GFR Calculation 145.9 mL/min (90-130) H 01/12/22 12:32 Glucose 96 mg/dL (65-115) 01/12/22 12:32 Calculated Osmolality 280 mOsm/kg (285-295) L 01/12/22 12:32 Uric Acid 5.5 mg/dL (2.4-5.7) 01/12/22 12:32 Calcium 9.3 mg/dL (8.5-10.5) 01/12/22 12:32 Magnesium 6.2 mg/dL (5.0-7.5) 01/14/22 10:10 Total Bilirubin 0.4 mg/dL (0.15-1.2) 01/12/22 12:32 AST 21 U/L (0-32) 01/12/22 12:32 ALT 15 U/L (0-33) 01/12/22 12:32 Alkaline Phosphatase 191 IU/L (35-105) H 01/12/22 12:32 Total Protein 6.6 g/dL (6.6-8.7) 01/12/22 12:32 Albumin 3.2 g/dL (3.5-5.2) L 01/12/22 12:32 Globulin 3.4 g/dL (1.3-4.6) 01/12/22 12:32 Urine Color Yellow (Yellow) 01/12/22 13:04 Urine Appearance Hazy (CLEAR) A 01/12/22 13:04 Urine pH 7 (5-7) 01/12/22 13:04 Ur Specific [place] 1.020 (1.005-1.030) 01/12/22 13:04 Urine Protein 1+ (Negative) H 01/12/22 13:04 Urine Glucose (UA) Norm (Normal) 01/12/22 13:04 Urine Ketones Negative (Negative) 01/12/22 13:04 Urine Blood 2+ (Negative) H 01/12/22 13:04 Urine Nitrate Negative (Negative) 01/12/22 13:04 Urine Bilirubin Neg (Negative) 01/12/22 13:04 Urine Urobilinogen Norm mg/dL (Negative) 01/12/22 13:04 Ur Leukocyte Esterase 2+ (Negative) H 01/12/22 13:04 Urine RBC 5-10 /hpf (0-2) H 01/12/22 13:04 Urine WBC 5-10 /hpf (0-5) H 01/12/22 13:04 Ur Squamous Epith Cells 15-25 /hpf (0-5) H 01/12/22 13:04 Ur Transition Epith Cell /hpf 01/12/22 13:04 Amorphous Sediment Not Reportable 01/12/22 13:04 Urine Bacteria 1+ /hpf (NONE) H 01/12/22 13:04 U Random Total Protein 41 mg/dL 01/12/22 14:05 Urine Creatinine 44 mg/dL (28-217) 01/12/22 14:05 Protein/Creatinin Ratio 0.93 mg/mg CR 01/12/22 14:05 Coronavirus 229E (PCR) Not detected (NOT DETECT) 01/12/22 18:35 SARS-CoV-2 (PCR) Detected (NOT DETECT) A 01/12/22 18:35 Blood Type O Positive 01/12/22 16:30 Rho(D) Type Positive 01/12/22 16:30 Antibody Screen Positive 01/12/22 16:30 Antibody Identification Anti-K 01/12/22 16:30 Crossmatch See Detail 01/12/22 16:30 Vitals Last Vital Signs Temp 97.7 F 01/16/22 01:00 Pulse 72 01/16/22 06:59 Resp 15 01/16/22 04:11 BP 141/80 01/16/22 06:59 Pulse Ox 100 01/14/22 15:07 Discharge Plan Discharge Patient Disposition: Home Condition: Stable Prescriptions: New labetalol 200 mg Tablet 100 mg PO BID@0900,2100 Qty: 42 0RF docusate sodium 100 mg Capsule 100 mg PO BID PRN (Reason: constipation) Qty: 30 0RF ibuprofen 800 mg tablet 800 mg PO Q8H Qty: 30 0RF Continued prenat.vits,ash,hvr-xrfd-vfmfd Tablet 1 tab PO DAILY 0RF Discharge Orders: Discharge Order (Routine); Ordered 01/16/22 Ordered By: Karly Arias Referrals: Steph Nava MD [Physician] - 01/20/22 12:30 pm (Your 1 week blood pressure check is scheduled for 01/20/22 @12:30. Your 6 week post- appointment is scheduled for 02/27/22 @1:30. ) Discharge Diet: Regular Discharge Activity: Limit activity as instructed Activity Restrictions/Additional Instructions: Pelvic rest for 6 weeks, no heavy lifting for 6 weeks 1 week blood pressure check with Dr. Nascimento, 6-week visit with Dr. Nava Monitor blood pressures 2 times a day and bring the log to each visit Discharge Attestations CRIMINAL RESEARCH SPECIALIST Time Spent in Discharge Care*: greater than 30 min Coding Level of Care Code Acute Practical Nursing Teacher for Chg Fwd Diagnoses History of hemorrhage Z87.59 Anti-LKM antibody positive Q99.8 Obesity affecting O99.211 Trimester: first trimester Supervision of other normal Z34.80 Fetus conceived on control Mild preeclampsia O14.00
--- NOTE | 2022-01-16 10:38 | PC.NURSE ---
Dr Nascimento notified of BP readings in preparation for discharge. Dr fourniered discharging pt at this time
== END 2022-01-16 10:45 | disposition home or self-care (01) | DRG 768 ==
LOC: OPOB 01-13 09:26
PROVIDERS: Obstetrics & Gynecology; Admitting Provider Obstetrics & Gynecology; Visit Provider Obstetrics & Gynecology
DX: O14.14 Severe pre-eclampsia complicating childbirth (principal); Z37.0 Single live birth; U07.1 COVID-19; O98.52 Other viral diseases complicating childbirth; Z3A.38 38 weeks gestation of pregnancy; O99.214 Obesity complicating childbirth; O69.1XX0 Labor and delivery complicated by cord around neck, with compression, not applicable or unspecified; O70.0 First degree perineal laceration during delivery; O71.89 Other specified obstetric trauma; Z79.891 Long term (current) use of opiate analgesic; Q99.8 Other specified chromosome abnormalities
CPT/HCPCS: 36415; 51702; 59025; 59409; 80053; 81000; 81001; 82570; 83735; 84156; 84550; 85025; 85027; 86850; 86870; 86900; 86920; 87086; 87635; 96372; 99211; J2405; J3010; J3475; J3490

== ENCOUNTER 2022-03-31 12:07 | Day surgery (SDC) | payer MEDICAID, SELFPAY ==
[2022-03-30 12:09] VITALS: BMI 37.9
--- NOTE | 2022-03-31 12:23 | W.PM.OPSUD ---
Surgery/Procedure H&P Update DATE OF PROCEDURE: March 31, 2022 DATE H&P PERFORMED: 03/26/22 H&P UPDATE INFORMATION: I have reviewed H&P completed within last 30 days, I have examined patient prior to procedure and No changes to prior documentation PREOP DIAGNOSIS: desires sterilization PLANNED PROCEDURE: Operation Date: 03/31/22 12:50 Proposed Procedures p Laparoscopic Salpingectomy 57520/z30.2(Bilateral) - Steph Nava MD Related Problem List Diagnoses (1) Sterilization consult:
[2022-03-31 12:28] VITALS: BP 139/95; PULSE 70; RESP 15; TEMP 36.9; O2SAT 100
[2022-03-31 12:36] LABS: OR HCG Qualitative Urine Negative (Negative)
[2022-03-31] MEDS: sodium chloride 0.9% 1,000 ML 30 ML IV (12:45)
[2022-03-31] MEDS: scopolamine 1.5 Patch 1 PATCH TRANSDERMA (12:50)
[2022-03-31 12:52] LABS: Basophils % 0.5 %; Eosinophils # 0.1 10^3/uL (0.0-0.8); Hematocrit 37.2 % (37.0-47.0); Hemoglobin 11.7 g/dL (11.5-15.3); Lymphocytes # 2.8 10^3/uL (0.8-4.8); Lymphocytes % 34.7 %; Mean Corpuscular HGB Conc 31.5 g/dL (30.0-36.0); Mean Corpuscular Hemoglobin 29.1 pg (28.0-34.0); Mean Corpuscular Volume 92.5 fl (81-99); Mean Platelet Volume 9.9 fL (7.4-10.4); Monocytes # 0.5 10^3/uL (0.2-0.9); Monocytes % 6.3 %; Neutrophils # 4.68 10^3/uL (1.8-7.7); Neutrophils % 57.1 %; Nucleated Red Blood Cells % 0 %; Platelet Count 283 10^3/cmm (130-400); Red Blood Count 4.02 10^6/uL (4.1-5.3); Red Cell Distribution Width 13.4 % (12.1-15.1); White Blood Count 8.2 10^3/uL (4.0-10.0)
[2022-03-31 13:12] LABS: Anion Gap 14.7 (5-19); Blood Urea Nitrogen 8 mg/dL (6-20); Calcium 9.1 mg/dL (8.5-10.5); Carbon Dioxide 24 mmol/L (22-29); Chloride 104 mmol/L (98-107); Glomerular Filtration Rate 145.9 mL/min (90-130); Glucose 92 mg/dL (65-115); Osmolality Calculated 286 mOsm/kg (285-295); Potassium 3.7 mmol/L (3.5-5.1); Sodium 139 mmol/L (136-145)
--- NOTE | 2022-03-31 13:12 | ANES.PREANE2 ---
Pre-Anesthetic Assessment Height/Weight: Height 1.6 m Weight 97.069 kg Temp Pulse Resp BP Pulse Ox 98.5 F 70 15 139/95 100 03/31/22 12:28 03/31/22 12:28 03/31/22 12:28 03/31/22 12:28 03/31/22 12:28 Preop Diagnosis: desires sterilization Operation Date: 03/31/22 12:50 Proposed Procedures p Laparoscopic Salpingectomy 83565/z30.2(Bilateral) - Steph Nava MD Familial anesthetic complications: None Was Beta Sara taken within 24 hours: N/A Was Clonidine taken within 24 hours: N/A Last intake: Intake Last Liquid Date 03/30/22 Last Liquid Time 22:30 Last Solid Date 03/30/22 Last Solid Time 22:30 Social No alcohol and No tobacco Exam alert, oriented x 3, clear to auscultation bilaterally and regular rate & rhythm Airway Submandibular: within normal limits Cervical ROM: within normal limits Mallampati: Class I Comments: Comments: Chipped front lower and upper teeth Missing some teeth History/ROS No significant complaints Pulmonary None reported CV/HEM None reported METS = 4 d/t deconditioning None reported Hepatic None reported GI Gastroesophageal Reflux Disease Metabolic None reported Musc/skel None reported Neuropsych None reported Anesthetic Plan ASA status: 2 Anesthesia: Anesthesia Evaluation and General Other: We discussed risk and benefits of general anesthesia including PONV, sore throat (sometimes severe), corneal abrasion, positioning and peripheral nerve injuries, life threatening allergic reaction, post operative ICU admission requiring prolonged intubation, stroke, heart attack, , and rare incidences of recall. Patient consents to proceed with general anesthesia. Risk of > 500 ml blood loss (7ml/kg in children): No Medications/Allergies Home Medications Medication Instructions Recorded Confirmed Last Taken Type prenat.vits,ash,ftc-ndpx-nqhlw 1 tab PO DAILY 08/19/21 03/31/22 03/30/22 History ibuprofen 800 mg tablet 800 mg PO Q8H PRN tab 01/20/22 03/31/22 03/17/22 History Allergies Allergy/AdvReac Type Severity Reaction Status Date / Time codeine Allergy nausea--has Verified 03/31/22 12:26 not taken hydrocodone Current Medications Generic Name Dose Route Start Last Admin Trade Name Freq PRN Reason Stop Dose Admin Sodium Chloride 1,000 mls @ 30 mls/hr 03/31/22 12:15 03/31/22 12:45 Sodium Chloride 0.9% IV 04/01/22 12:14 30 mls/hr .Q24H ALONDRA Administration PFSH Anesthesia Medical History No pertinent past medical history denies hx: htn,thyroid,dm,dvt/pe PCP: none Surgical History No pertinent past surgical history Family History Grandmother Colon cancer Maternal grandmother Family/Other Colon cancer Maternal aunt Denies family history of Ovarian cancer Diabetes Heart disease Hyperlipidemia Breast cancer Family history of thyroid problem Hypertension Uterine cancer Stroke Data Anesthesia : 03/31/22 12:41 03/31/22 12:41 Short CBC 03/31/22 Range/Units 12:41 WBC 8.2 (4.0-10.0) 10^3/uL Hgb 11.7 (11.5-15.3) g/dL Hct 37.2 (37.0-47.0) % MCV 92.5 (81-99) fl Plt Count 283 (130-400) 10^3/cmm Neut % (Auto) 57.1 % Neut # (Auto) 4.68 (1.8-7.7) 10^3/uL BMP 03/31/22 12:41 Sodium 139 Potassium 3.7 Chloride 104 Carbon Dioxide 24 BUN 8 Creatinine 0.5 Glucose 92 Calcium 9.1 Cardiac Studies: No Data to Display
[2022-03-31] MEDS: gabapentin 300 mg Capsule PO (13:14)
[2022-03-31] MEDS: CELEcoxib 200 mg Capsule 400 MG PO (13:15)
[2022-03-31] MEDS: ketorolac 30 mg/mL INJ IVP (13:15)
[2022-03-31] MEDS: acetaminophen 1,000 MG/100 ML PIGGYBACK 400 MG IV (13:15)
== END 2022-03-31 14:00 | disposition home or self-care (01) ==
PROVIDERS: Visit Provider Obstetrics & Gynecology
PROC: (CPT 58661; principal; 2022-03-31 12:40)
DX: Z30.2 Encounter for sterilization (principal); Z53.9 Procedure and treatment not carried out, unspecified reason
CPT/HCPCS: 36415; 80048; 81025; 84703; 85025; J1885; J7030

== ENCOUNTER 2022-04-30 07:36 | Day surgery (SDC) | payer MEDICAID, SELFPAY ==
[2022-04-29 12:13] VITALS: BMI 38.2
[2022-04-30] VITALS (8 sets, daily range): BP systolic 114–125; BP diastolic 68–85; PULSE 74–94; RESP 18; TEMP 36.2–36.6; O2SAT 97–100
[2022-04-30 08:04] LABS: OR HCG Qualitative Urine Negative (Negative)
[2022-04-30] MEDS: scopolamine 1.5 Patch 1 PATCH TRANSDERMA (08:14)
[2022-04-30] MEDS: sodium chloride 0.9% 1,000 ML 30 ML IV (08:14)
--- NOTE | 2022-04-30 08:16 | ANES.PREANE2 ---
Pre-Anesthetic Assessment Height/Weight: Height 1.6 m Weight 97.976 kg Temp Pulse Resp BP Pulse Ox 97.7 F 74 18 123/85 97 04/30/22 07:59 04/30/22 07:59 04/30/22 07:59 04/30/22 07:59 04/30/22 07:59 Preop Diagnosis: Sterilization Operation Date: 04/30/22 08:30 Proposed Procedures p Laparoscopic bilaterail Salpingectomy 19913, z30.2(Bilateral) - Karly Arias MD Last intake: Intake Last Liquid Date 04/29/22 Last Liquid Time 19:00 Last Solid Date 04/29/22 Last Solid Time 19:00 Social No alcohol and No tobacco Airway Submandibular: within normal limits Cervical ROM: within normal limits Mallampati: Class II Anesthetic Plan ASA status: 1 Anesthesia: General Medications/Allergies Home Medications Medication Instructions Recorded Confirmed Last Taken Type prenat.vits,ash,efj-hfne-hevff 1 tab PO DAILY 08/19/21 04/30/22 04/29/22 History Allergies Allergy/AdvReac Type Severity Reaction Status Date / Time codeine Allergy nausea--has Verified 04/22/22 09:24 not taken hydrocodone Current Medications Generic Name Dose Route Start Last Admin Trade Name Freq PRN Reason Stop Dose Admin Sodium Chloride 1,000 mls @ 30 mls/hr 04/30/22 08:00 04/30/22 08:14 Sodium Chloride 0.9% IV 05/01/22 07:59 30 mls/hr .Q24H ALONDRA Administration PFSH Anesthesia Medical History No pertinent past medical history Denies diabetes, asthma, hypertension, seizures, DVT/PE PCP: None Surgical History No pertinent past surgical history Family History Grandmother Colon cancer Maternal grandmother, diagnosed in her 70s Family/Other Colon cancer Maternal aunt, diagnosed in her 50s Breast cancer maternal aunt, diagnosed in her 50s or 60s Denies family history of Ovarian cancer Diabetes Heart disease Hyperlipidemia Hypertension Uterine cancer Thyroid condition Stroke Female Reproductive History Date of last menstrual period: 04/01/22 Data Anesthesia Cardiac Studies: No Data to Display
--- NOTE | 2022-04-30 08:22 | W.PM.OPSUD ---
Surgery/Procedure H&P Update DATE OF PROCEDURE: April 30, 2022 DATE H&P PERFORMED: 04/22/22 H&P UPDATE INFORMATION: I have reviewed H&P completed within last 30 days, I have examined patient prior to procedure, No changes to prior documentation and H&P is in [facility] EMR on date indicated PREOP DIAGNOSIS: Sterilization PLANNED PROCEDURE: Operation Date: 04/30/22 08:30 Proposed Procedures p Laparoscopic bilaterail Salpingectomy 97775, z30.2(Bilateral) - Karly Arias MD
[2022-04-30 08:25] LABS: Basophils % 0.5 %; Eosinophils # 0.1 10^3/uL (0.0-0.8); Eosinophils % 1.5 %; Hematocrit 37.3 % (37.0-47.0); Hemoglobin 12.3 g/dL (11.5-15.3); Lymphocytes % 32.4 %; Mean Corpuscular Hemoglobin 29.8 pg (28.0-34.0); Mean Corpuscular Volume 90.3 fl (81-99); Mean Platelet Volume 10.1 fL (7.4-10.4); Monocytes # 0.4 10^3/uL (0.2-0.9); Monocytes % 7.2 %; Neutrophils # 3.49 10^3/uL (1.8-7.7); Neutrophils % 58.1 %; Nucleated Red Blood Cells % 0 %; Platelet Count 267 10^3/cmm (130-400); Red Blood Count 4.13 10^6/uL (4.1-5.3); Red Cell Distribution Width 13.1 % (12.1-15.1)
[2022-04-30] MEDS: silver nitrate applicator 1 EACH TOPICAL (09:47)
--- NOTE | 2022-04-30 09:57 | P.OP_ITS ---
Operative Report Date of procedure: April 30, 2022 Pre-op diagnosis: OPERATIVE REPORT Date of surgery: 04/30/2022 Date of dictation: 04/30/2022 Preoperative diagnosis: Request for sterilization Postoperative diagnosis/findings: 8-week size retroverted uterus, mobile, on laparoscopy-normal tubes and ovaries bilaterally, no acute abdominal pathology, cul-de-sac not well visualized secondary to unable to move bowel out of the way. Procedure done: Laparoscopic bilateral total salpingectomy for sterilization Specimens removed/disposition of specimens: Right and left fallopian tubes Surgeon: Dr. Karly Nascimento Physician assistant hvac mechanic: Renea Moore Anesthesia: General endotracheal tube anesthesia Estimated blood loss: Less than 25 ml Intravenous fluids: 900 mL of LR Urine output: 100 mL of concentrated urine at the end of procedure Medications: As per anesthesia records Complications: None, patient was extubated and taken to the recovery room in stable condition PROCEDURE: After consents were signed patient was taken to the operating room where she was placed under general anesthesia without any difficulty. She was placed supine on the table in the lithotomy position. Exam under anesthesia revealed findings noted above. She was then prepped and draped in usual sterile fashion. Weighted speculum and anterior wall retractors were placed in the vagina, cervix visualized and grasped with a tenaculum. ZUMI uterine manipulator was placed into the uterus without any difficulty. Catheter was placed, instruments were removed from the vagina and the legs were lowered. Attention was turned towards the abdomen where local anesthetic was injected in to her umbilicus. A 10 mm skin incision was made and a 10 mm port was placed through the umbilicus using an open technique--- fascia was identified and tented up with Black clamps and directly incised using curved Mayos. Peritoneum was then bluntly entered digitally and palpation revealed no adhesions around site of entry. Gong trocar was then attached to the fascia and inflated. Once intra-abdominal entry was confirmed gas was turned on and intra-abdominal opening pressure was 2. The abdomen is insufflated to the pressure was 14. Survey of the abdomen revealed findings noted above. Two 5 mm trocar was placed into the left and right lower quadrant under direct visualization after injecting local anesthetic. The Voyant device was used to clamp, cauterize and then cut the mesosalpinx under the fallopian tube starting at the fimbriated end and moving towards the uterus. This was done in a sequential fashion in such a way that the entire fallopian tube was from the sidewall and the uterus. The small cornual stump was cauterized as well. This was done first on the right side and then the left side without any difficulty. The right and left fallopian tubes were taken out of the umbilical port without any difficulty. No bleeding was noted at sites of surgery. Pressure was dropped down to 0 and no bleeding was noted. Trochars were removed under direct visualization. All instruments removed from the abdomen and the abdomen was desufflated. The fascia on the umbilical port was closed with 0 Vicryl in a continuous fashion and good reapproximation was obtained-care was taken to tent up the fascia throughout the closure. The skin incisions was closed with 4-0 Monocryl in a subcuticular fashion good reapproximation and hemostasis was noted. The incisions were dressed with Steri-Strips Telfa and Tegaderm. The ZUMI and Cat catheter were removed and good hemostasis was achieved after silver nitrate application. The patient was extubated without any difficulty and taken to the recovery room in a stable condition. FOLLOW UP: Follow-up in 2 weeks and 6 weeks with surgeon MEDICATION ON DISCHARGE: Colace 100 mg by mouth every 12 hours when necessary constipation, 30 tablets, no refills Ibuprofen 800 mg by mouth every 8 hours when necessary pain, 60 tablets, no refills. Dilaudid 1 tablet by mouth every 6 hours when necessary pain, 20 tablets, no refills Continue other home medication DISPOSITION: Home in a stable condition This documentation was created by [employer] brine plant operator software (known for inherent brine plant operator error). Every effort was made to assure accuracy of brine plant operator. Any obvious errors or omissions should be clarified with the author of the document.
[2022-04-30] MEDS: ondansetron 2 mg/ML SDV 2 mL 4 MG IVP (11:03)
--- NOTE | 2022-04-30 13:54 | ANE.PACU2 ---
Inpatient post-anesthesia follow up: Airway intact: Yes Vital signs: Temperature 97.8 F Pulse Rate 75 Respiratory Rate 18 Blood Pressure 122/73 Pulse Oximetry 99 Oxygen Delivery Me thod Room Air Oxygen Flow Rate 6 Fraction of Inspir ed Oxygen Hydration adequate: Yes Nausea and vomiting: No Pain level: 1 Mental status: Baseline
== END 2022-04-30 11:12 | disposition home or self-care (01) ==
PROVIDERS: Anesthesiology; Visit Provider Obstetrics & Gynecology
PROC: (CPT 58661; principal; 2022-04-30 08:30)
DX: Z30.2 Encounter for sterilization (principal)
CPT/HCPCS: 58661; 36415; 84703; 85025; 86850; 86870; 86900; 86920; 88302; J0330; J1100; J2250; J2405; J2704; J3010; J3490; J7030

== ENCOUNTER → 2023-12-08 17:38 | Outpatient (BNVA) | payer MEDICAID, SELFPAY | PROVIDERS: Visit Provider Registered Nurse Neonatal Intensive Care | DX: J06.9 Acute upper respiratory infection, unspecified (principal) | CPT/HCPCS: 87400 ==

== ENCOUNTER 2024-10-01 16:34 | Emergency (ER) | payer MEDICAID, SELFPAY ==
[2024-10-01 17:00] VITALS: BP 139/90; PULSE 89; RESP 18; TEMP 36.8; O2SAT 98; BMI 44.2
--- NOTE | 2024-10-01 17:25 | CTR_ITS ---
PROCEDURE INFORMATION: Exam: CT Abdomen And Pelvis Without Contrast Exam date and time: 10/01/2024 5:33 PM Age: 34 years old Clinical indication: Abdominal pain; Localized; Right lower quadrant (rlq); Prior surgery; Surgery date: 6+ months; Surgery type: Tubal; Additional info: Rlq pain TECHNIQUE: Imaging protocol: Computed tomography of the abdomen and pelvis without contrast. Radiation optimization: All CT scans at this facility use at least one of these dose optimization techniques: automated exposure control; mA and/or kV adjustment per patient size (includes targeted exams where dose is matched to clinical indication); or iterative reconstruction. COMPARISON: ES surgery / GI images 04/30/2022 5:10 AM RADIATION DOSE METRICS: Total DLP (mGy-cm): 1139.48 FINDINGS: Liver: Normal. No mass. Gallbladder and biliary ducts: Normal. No calcified stones. No ductal dilation. Pancreas: Normal. No ductal dilation. Spleen: Normal. No splenomegaly. Adrenal glands: Normal. No mass. Kidneys and ureters: Normal. No hydronephrosis. Stomach and bowel: Unremarkable. No obstruction. No mucosal thickening. Appendix: No evidence of appendicitis. Intraperitoneal space: Unremarkable. No free air. No significant fluid collection. Vasculature: Scattered phleboliths in the pelvis noted. Lymph nodes: Unremarkable. No enlarged lymph nodes. Urinary bladder: Unremarkable as visualized. Reproductive: Unremarkable as visualized. Bones/joints: Unremarkable. No acute fracture. Soft tissues: Large complex lobulated fat containing umbilical hernia. CT/CT abdomen pelvis con [id number] IMPRESSION: 1. No acute findings. 2. Large complex lobulated fat containing umbilical hernia. 3. There is a slightly spiculated soft tissue mass in the subcutaneous fat of the right lower quadrant lower anterior abdominal wall measuring proximally 2 cm. This extends to the abdominal wall musculature. This may represent focal scarring versus mass such as endometrioma or desmoid tumor. Please correlate clinically. Consider biopsy.
[2024-10-01 17:53] LABS: Basophils # 0.1 10^3/uL (0.0-0.1); Basophils % 0.6 %; Eosinophils # 0.1 10^3/uL (0.0-0.8); Eosinophils % 0.6 %; Hematocrit 37.4 % (36-47); Lymphocytes # 2.6 10^3/uL (0.8-4.8); Lymphocytes % 23.8 %; Mean Corpuscular HGB Conc 31.8 g/dL (30-55); Mean Corpuscular Hemoglobin 28.8 pg (27-33); Mean Corpuscular Volume 90.6 fl (85-98); Mean Platelet Volume 9.9 fL (7.4-10.4); Monocytes # 0.6 10^3/uL (0.2-0.9); Monocytes % 5.8 %; Neutrophils # 7.44 10^3/uL (1.8-7.7); Neutrophils % 68.6 %; Nucleated Red Blood Cells % 0 %; Platelet Count 313 10^3/cmm (157-399); Red Blood Count 4.13 10^6/uL (3.85-5.65); Red Cell Distribution Width 13.1 % (12.1-15.1); White Blood Count 10.84 10^3/uL (3.29-11.43)
[2024-10-01 18:05] LABS: HCG, Serum Qual Negative (Negative)
[2024-10-01 18:15] LABS: Alanine Aminotransferase 19 U/L (0-33); Albumin Level 4.2 g/dL (3.5-5.2); Alkaline Phosphatase 84 U/L (35-105); Anion Gap 13.7 (5-19); Aspartate Amino Transferase 17 U/L (0-32); Blood Urea Nitrogen 9 mg/dL (6-20); Calcium 8.6 mg/dL (8.5-10.5); Carbon Dioxide 25 mmol/L (22-29); Chloride 101 mmol/L (98-107); Creatinine Clr Calc Pharmacy 139.8843; Globulin 2.2 g/dL (1.3-4.6); Glucose 101 mg/dL (65-115); Lipase 14 U/L (13-60); Osmolality Calculated 281 mOsm/kg (285-295); Potassium 3.7 mmol/L (3.5-5.1); Sodium 136 mmol/L (136-145); Total Bilirubin 0.3 mg/dL (0.15-1.2); Total Protein 6.4 g/dL (6.6-8.7)
[2024-10-01 18:43] VITALS: O2SAT 98
[2024-10-01] MEDS: morphine 4 mg/mL SDV 1 mL 2 MG IVP (18:43)
[2024-10-01] MEDS: sodium chloride 0.9% 1,000 ML 999 ML IV (18:43)
[2024-10-01] MEDS: ondansetron 2 mg/ML SDV 2 mL 4 MG IVP (18:43)
[2024-10-01 18:48] LABS: Bilirubin Urine Negative (Negative); Blood Urine Negative (Negative); Glucose Urine UA Negative (Normal); Ketones Urine Negative (Negative); Leukocyte Esterase Urine Negative (Negative); Nitrate Urine Negative (Negative); Protein Urine Trace (Negative); Specific Gravity, Urine 1.025 (1.005-1.030); Urine Appearance Clear (CLEAR); Urine Color Yellow (Yellow); pH Urine 5.5 (5-7)
[2024-10-01 18:53] VITALS: BP 126/84; PULSE 81; RESP 16; O2SAT 98
[2024-10-01 18:54] LABS: Add Urine Microscopic? YES; Bacteria Urine 1+ /hpf; Hyaline Casts Urine 1.21 /lpf; WBC Urine 0-5 /hpf (0-5)
--- NOTE | 2024-10-01 19:44 | ED_ITS ---
HPI - Abdominal Pain 2 General: Chief Complaint: Abdominal Pain Stated Complaint: right abd pain Time Seen by Provider: 10/01/24 17:07 History of Present Illness: This patient is a 34-year-old white female who presents to the emergency department complaining of right lower quadrant abdominal pain. She states that she woke up with this around 4 AM today.'s been getting progressively worse throughout the day. She has not had any associated nausea, vomiting, constipation, diarrhea, dysuria or fever. She has no chronic medical problems. Past surgical history includes bilateral salpingectomies. Related Data Previous Rx's Medication Instructions Recorded mupirocin 2 % topical ointment 1 applic topical BID 7 days #22 05/11/24 grams hydrocodone 5 mg-acetaminophen 325 1 tab PO Q4H PRN pain #20 tabs 10/01/24 mg tablet Allergies Allergy/AdvReac Type Severity Reaction Status Date / Time codeine Allergy nausea--has Verified 10/01/24 16:59 not taken hydrocodone Review of Systems 2 General: Reports: 10 or more systems reviewed and unremarkable except in HPI and below GI: Reports: abdominal pain PFSH ED 2 PFSH: Medical History No pertinent past medical history Denies diabetes, asthma, hypertension, seizures, DVT/PE PCP: None Surgical History Status post tubal ligation 04/30/2022--laparoscopic bilateral total salpingectomy for sterilization by Dr. Nascimento at [facility]. -Pathology showed benign changes with no malignancy, left paratubal cyst- benign Family History Grandmother Colon cancer Maternal grandmother, diagnosed in her 70s Family/Other Colon cancer Maternal aunt, diagnosed in her 50s Breast cancer maternal aunt, diagnosed in her 50s or 60s Denies family history of Ovarian cancer Diabetes Heart disease Hyperlipidemia Hypertension Uterine cancer Thyroid condition Stroke Social History Substance/Drug Use: never Physical Exam 2 Const: COMMON NORMALS: patient oriented x3 and no limitations GENERAL APPEARANCE: cooperative and comfortable HENMT: COMMON NORMALS: normocephalic, atraumatic, Normal nasal mucous membranes and turbinates present, moist oral mucous membranes and oropharynx normal HEAD & SCALP: normal to inspection, normocephalic and atraumatic F RACHEL & SINUS: normal facial exam NOSE: Normal nasal mucous membranes and turbinates present Eye: COMMON NORMALS: Equal, round and reactive pupils present, EOMs intact bilaterally and conjunctivae normal GENERAL EYE: appearance normal, both eyes and all related structures CONJUNCTIVA: Yes conjunctivae normal PUPIL: Yes Equal, round and reactive pupils present Neck/C-Spine: COMMON NORMALS: supple and no JVD Chest: COMMONS NORMALS: normal inspection of the chest Resp: COMMON NORMALS: normal respiratory effort and clear to auscultation bilaterally AUSCULTATION: clear to auscultation bilaterally Cardio: COMMON NORMALS: no JVD, regular rate, regular rhythm, No gallops present (Cardio), No murmurs present (Cardio) and No rub (Cardio) RATE: r egular rate RHYTHM: regular rhythm GI: COMMON NORMALS: Soft to palpation AUSCULTATION: Yes normoactive bowel sounds PALPATION: Yes Soft to palpation, Yes Tenderness to palpation present (GI) Details: RLQ, No Guarding due to palpation present (GI) and No Rebound tenderness present : COMMON NORMALS: Yes no CVA tenderness BLADDER/KIDNEY EXAM: Yes no CVA tenderness Back/Pelvis: COMMON NORMALS: no CVA tenderness and thoracic and lumbar spine normal to inspection Extremity: COMMON NORMALS: normal to inspection Neuro: COMMON NORMALS: patient oriented x3 and CN's II-XII intact bilaterally Psych: COMMON NORMALS: mental status grossly normal, Normal thought process present and cooperative THOUGHT PROCESS: Normal thought process present Skin: COMMON NORMALS: no rashes or lesions noted, turgor normal and no jaundice GENERAL SKIN EXAM: no rashes or lesions noted and turgor normal Course 2 Vital Signs: Vital signs: Vital Signs Temperature 98.2 F 10/01/24 17:00 Pulse Rate 81 10/01/24 18:53 Respiratory Rate 16 10/01/24 18:53 Blood Pressure 126/84 10/01/24 18:53 Pulse Oximetry 98 10/01/24 18:53 Oxygen Delivery Me thod Room Air 10/01/24 18:53 MDM - Abdominal Pain Medical Decision Making CBC, CMP, lipase normal. test negative. Urinalysis normal. CT scan of the abdomen and pelvis was read by the radiologist. Normal appendix. She does have a fat-containing umbilical hernia. She also has a small soft tissue mass in the right lower quadrant in the subcutaneous fat extending into the muscle concerning for scarring versus endometrioma versus desmoid tumor. They recommended biopsy. I discussed the CT findings with the patient. Recommended she follow-up with Dr. Veras, general surgeon for further evaluation of this. Patient was given morphine and Zofran in the emergency department for discomfort. She is feeling better. She was discharged in stable condition with a prescription for hydrocodone. Lab Data 10/01/24 17:45 10/01/24 17:45 Labs/Radiology: Radiology Impressions Abdomen/Pelvis CT 10/01/24 17:25 IMPRESSION: 1. No acute findings. 2. Large complex lobulated fat containing umbilical hernia. 3. There is a slightly spiculated soft tissue mass in the subcutaneous fat of the right lower quadrant lower anterior abdominal wall measuring proximally 2 cm. This extends to the abdominal wall musculature. This may represent focal scarring versus mass such as endometrioma or desmoid tumor. Please correlate clinically. Consider biopsy. Laboratory Results WBC 10.84 10^3/uL (3.29-11.43) 10/01/24 17:45 RBC 4.13 10^6/uL (3.85-5.65) 10/01/24 17:45 Hgb 11.90 g/dL (11.27-16.99) 10/01/24 17:45 Hct 37.4 % (36-47) 10/01/24 17:45 MCV 90.6 fl (85-98) 10/01/24 17:45 MCH 28.8 pg (27-33) 10/01/24 17:45 MCHC 31.8 g/dL (30-55) 10/01/24 17:45 RDW 13.1 % (12.1-15.1) 10/01/24 17:45 Plt Count 313 10^3/cmm (157-399) 10/01/24 17:45 MPV 9.9 fL (7.4-10.4) 10/01/24 17:45 Neut % (Auto) 68.6 % 10/01/24 17:45 Lymph % (Auto) 23.8 % 10/01/24 17:45 [place] % (Auto) 5.8 % 10/01/24 17:45 Eos % (Auto) 0.6 % 10/01/24 17:45 Baso % (Auto) 0.6 % 10/01/24 17:45 Neut # (Auto) 7.44 10^3/uL (1.8-7.7) 10/01/24 17:45 Lymph # (Auto) 2.6 10^3/uL (0.8-4.8) 10/01/24 17:45 [place] # (Auto) 0.6 10^3/uL (0.2-0.9) 10/01/24 17:45 Eos # (Auto) 0.1 10^3/uL (0.0-0.8) 10/01/24 17:45 Baso # (Auto) 0.1 10^3/uL (0.0-0.1) 10/01/24 17:45 Nucleated RBC % (auto) 0 % 10/01/24 17:45 Nucleated RBCs # 0.0 /100WBC 10/01/24 17:45 Sodium 136 mmol/L (136-145) 10/01/24 17:45 Potassium 3.7 mmol/L (3.5-5.1) 10/01/24 17:45 Chloride 101 mmol/L (98-107) 10/01/24 17:45 Carbon Dioxide 25 mmol/L (22-29) 10/01/24 17:45 Anion Gap 13.7 (5-19) 10/01/24 17:45 BUN 9 mg/dL (6-20) 10/01/24 17:45 Creatinine 0.7 mg/dL (0.5-0.9) 10/01/24 17:45 GFR Calculation 97.0 mL/min (90-130) 10/01/24 17:45 Glucose 101 mg/dL (65-115) 10/01/24 17:45 Calculated Osmolality 281 mOsm/kg (285-295) L 10/01/24 17:45 Calcium 8.6 mg/dL (8.5-10.5) 10/01/24 17:45 Total Bilirubin 0.3 mg/dL (0.15-1.2) 10/01/24 17:45 AST 17 U/L (0-32) 10/01/24 17:45 ALT 19 U/L (0-33) 10/01/24 17:45 Alkaline Phosphatase 84 U/L (35-105) 10/01/24 17:45 Total Protein 6.4 g/dL (6.6-8.7) L 10/01/24 17:45 Albumin 4.2 g/dL (3.5-5.2) 10/01/24 17:45 Globulin 2.2 g/dL (1.3-4.6) 10/01/24 17:45 Lipase 14 U/L (13-60) 10/01/24 17:45 HCG, Qual Negative (Negative) 10/01/24 17:45 Urine Color Yellow (Yellow) 10/01/24 18:33 Urine Appearance Clear (CLEAR) 10/01/24 18:33 Urine pH 5.5 (5-7) 10/01/24 18:33 Ur Specific [place] 1.025 (1.005-1.030) 10/01/24 18:33 Urine Protein Trace (Negative) A 10/01/24 18:33 Urine Glucose (UA) Negative (Normal) 10/01/24 18:33 Urine Ketones Negative (Negative) 10/01/24 18:33 Urine Blood Negative (Negative) 10/01/24 18:33 Urine Nitrate Negative (Negative) 10/01/24 18:33 Urine Bilirubin Negative (Negative) 10/01/24 18:33 Urine Urobilinogen 1.0 mg/dL (Negative) 10/01/24 18:33 Ur Leukocyte Esterase Negative (Negative) 10/01/24 18:33 Urine RBC 3-5 /hpf (0-2) 10/01/24 18:33 Urine WBC 0-5 /hpf (0-5) 10/01/24 18:33 Ur Squamous Epith Cells 6-10 /hpf (0-5) 10/01/24 18:33 Amorphous Sediment Not Reportable 10/01/24 18:33 Urine Bacteria 1+ /hpf (NONE) H 10/01/24 18:33 Hyaline Casts 1.21 /lpf 10/01/24 18:33 All radiology interpretation(s) finalized by discharge Discharge Plan Discharge Patient Disposition: Home Clinical Impression: Abdominal wall mass Abdominal pain Qualifiers: Abdominal location: right lower quadrant Qualified Code(s): R10.31 - Right lower quadrant pain Hernia, umbilical Qualifiers: Obstruction and gangrene presence: without obstruction or gangrene Qualified Code(s): K42.9 - Umbilical hernia without obstruction or gangrene Condition: Stable Prescriptions: New hydrocodone-acetaminophen 5-325 mg tablet 1 tab PO Q4H PRN (Reason: pain) Qty: 20 0RF No Action mupirocin 2 % ointment 1 applic topical BID 7 Days Qty: 22 0RF Discharge Orders: Discharge ED (Routine); Ordered 10/01/24 Ordered By: Vicente Smith Referrals: Salvador Veras MD [Physician] - Patient Instructions: Abdominal Pain (ED), Opioid Safety, Pain Management Activity Restrictions/Additional Instructions: Call Dr. Veras's office tomorrow to schedule appointment for further evaluation. Coding Level of Care Code ED [employer] for Nereida Major
[2024-10-01 20:28] VITALS: BP 123/69; PULSE 97; RESP 16; O2SAT 98
== END 2024-10-01 20:28 | disposition home or self-care (01) ==
PROVIDERS: Emergency Provider Emergency Medicine
DX: R10.31 Right lower quadrant pain (principal); K42.9 Umbilical hernia without obstruction or gangrene
CPT/HCPCS: 36415; 74176; 80053; 81001; 83690; 84703; 85025; 96374; 96375; 99285; J2270; J2405; J7030

== ENCOUNTER 2024-10-11 05:53 | Day surgery (SDC) | payer MEDICAID, SELFPAY ==
[2024-10-11] VITALS (12 sets, daily range): BP systolic 117–141; BP diastolic 61–79; PULSE 74–97; RESP 15–18; TEMP 36.2–36.4; O2SAT 95–99; BMI 44.2
[2024-10-11] MEDS: sodium chloride 0.9% 1,000 ML 30 ML IV (06:28)
[2024-10-11 06:42] LABS: OR HCG Qualitative Urine Negative (Negative)
--- NOTE | 2024-10-11 06:51 | ANES.PREANE2 ---
Pre-Anesthetic Assessment Height/Weight: Height 1.6 m Weight 113.398 kg Temp Pulse Resp BP Pulse Ox O2 Del Method 97.3 F L 97 18 117/78 98 Room Air 10/11/24 06:13 10/11/24 06:13 10/11/24 06:13 10/11/24 06:13 10/11/24 06:13 10/11/24 06:17 Operation Date: 10/11/24 07:00 Proposed Procedures p excision of abdominal soft tissue mass - [id number],D48.19(Not Applicable) - Salvador Veras MD s open ventral hernia repair with mesh(Not Applicable) - Salvador Veras MD Familial anesthetic complications: None Was Beta Sara taken within 24 hours: N/A Was Clonidine taken within 24 hours: N/A Last intake: Intake Last Liquid Date 10/10/24 Last Liquid Time 19:00 Last Solid Date 10/10/24 Last Solid Time 19:00 Social No alcohol and No tobacco Exam alert, oriented x 3, clear to auscultation bilaterally and regular rate & rhythm Airway Mallampati: Class II Dentition: chipped Metabolic Morbid Obesity Anesthetic Plan ASA status: 2 Anesthesia: General Risk of > 500 ml blood loss (7ml/kg in children): No Medications/Allergies Home Medications Medication Instructions Recorded Confirmed Last Taken Type mupirocin 2 % topical ointment 1 applic topical BID 7 days #22 05/11/24 10/10/24 Unknown Rx grams Allergies Allergy/AdvReac Type Severity Reaction Status Date / Time codeine Allergy nausea--has Verified 10/03/24 10:50 not taken hydrocodone Current Medications Generic Name Dose Route Start Last Admin Trade Name Westq PRN Reason Stop Dose Admin Sodium Chloride 1,000 mls @ 30 mls/hr 10/11/24 06:00 10/11/24 06:28 Sodium Chloride 0.9% IV 10/12/24 05:59 30 mls/hr .Q24H ALONDRA Administration PFSH Anesthesia Medical History No pertinent past medical history Denies diabetes, asthma, hypertension, seizures, DVT/PE PCP: None Surgical History Status post tubal ligation 04/30/2022--laparoscopic bilateral total salpingectomy for sterilization by Dr. Nascimento at [facility] [place]. -Pathology showed benign changes with no malignancy, left paratubal cyst-benign Family History Grandmother Colon cancer Maternal grandmother, diagnosed in her 70s Family/Other Colon cancer Maternal aunt, diagnosed in her 50s Breast cancer maternal aunt, diagnosed in her 50s or 60s Denies family history of Ovarian cancer Diabetes Heart disease Hyperlipidemia Hypertension Uterine cancer Thyroid disease Stroke Social History (Updated 10/03/24 @ 10:55 by YUMIKO Saeed) Smoking and tobacco/nicotine status: never used tobacco/nicotine Alcohol intake: never Substance/Drug Use: never Data Anesthesia Cardiac Studies: No Data to Display
--- NOTE | 2024-10-11 06:59 | W.PM.OPSUD ---
Surgery/Procedure H&P Update DATE OF PROCEDURE: October 11, 2024 DATE H&P PERFORMED: 10/03/24 H&P UPDATE INFORMATION: I have reviewed H&P completed within last 30 days, I have examined patient prior to procedure and No changes to prior documentation PLANNED PROCEDURE: Operation Date: 10/11/24 07:00 Proposed Procedures p excision of abdominal soft tissue mass - [id number],D48.19(Not Applicable) - Salvador Veras MD s open ventral hernia repair with mesh(Not Applicable) - Salvador Veras MD
[2024-10-11] MEDS: ceFAZolin 2,000 mg SDV 2000 MG IVP (07:00)
[2024-10-11] MEDS: BUPivacaine 0.25% INJ 10 mL INJECTION (07:30)
[2024-10-11] MEDS: lidocaine-epi 1% 20 mL INJ INJECTION (07:30)
--- NOTE | 2024-10-11 07:37 | PM.OP ---
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 Patient experiencing discomfort and soft tissue mass was seen on CT scan. Discussed risk and benefits of soft tissue mass excision and patient agreed to proceed. I used ultrasound in PACU to locate the soft tissue mass. Procedure: After obtaining consent the patient was taken to the operating room. Patient was placed supine on the table. SCDs were on and functional. Preoperative Ancef was administered. Procedure done under MAC. The abdomen was prepped and draped in the usual sterile fashion. Local infiltration using 1% lidocaine and quarter percent bupivacaine was carried out. A 5 cm incision was performed in the right lower quadrant overlying the lesion. Using electrocautery I dissected down to the lesion which was just anterior to the fascia. I dissected around the lesion and and kept the capsule and intact. I passed off the lesion to be sent to pathology. The lesion appeared to be a desmoid tumor on gross examination. I then performed hemostasis using electrocautery. The deep dermal layer was closed using 3-0 Vicryl. Skin was closed using 4-0 Monocryl and surgical glue. The patient woke up without any complications and was transferred to PACU.
--- NOTE | 2024-10-11 09:15 | ANE.PACU2 ---
Inpatient post-anesthesia follow up: Airway intact: Yes Vital signs: Temperature 97.2 F Pulse Rate 78 Respiratory Rate 16 Blood Pressure 120/73 Pulse Oximetry 98 Oxygen Delivery Me thod Room Air Oxygen Flow Rate 6 Fraction of Inspir ed Oxygen Hydration adequate: Yes Nausea and vomiting: No Pain level: 1 Mental status: Baseline
== END 2024-10-11 09:18 | disposition home or self-care (01) ==
PROVIDERS: Anesthesiology; PCP Family Medicine; Visit Provider Student in an Organized Health Care Education/Training Program
PROC: (CPT 22901; principal; 2024-10-11 07:00)
DX: D48.113 Desmoid tumor of abdominal wall (principal); E66.01 Morbid (severe) obesity due to excess calories; Z68.41 Body mass index [BMI] 40.0-44.9, adult
CPT/HCPCS: 22901; 81025; 88307; J0690; J1100; J1885; J2250; J2405; J2704; J3010; J3490; J7030

== ENCOUNTER → 2024-11-06 16:16 | Outpatient (BNVA) | payer MEDICAID, SELFPAY | PROVIDERS: PCP Family Medicine; Visit Provider Obstetrics & Gynecology | DX: R10.2 Pelvic and perineal pain (principal) | CPT/HCPCS: 87624 ==

== ENCOUNTER → 2024-12-15 15:23 | Outpatient (BNVA) | payer MEDICAID, SELFPAY | PROVIDERS: PCP Family Medicine; Visit Provider Obstetrics & Gynecology | DX: D25.2 Subserosal leiomyoma of uterus (principal); D25.1 Intramural leiomyoma of uterus | CPT/HCPCS: 76830 ==

== ENCOUNTER → 2025-10-11 07:38 | Outpatient (BNVA) | payer MEDICAID, SELFPAY | PROVIDERS: PCP Family Medicine; Visit Provider Podiatrist Foot & Ankle Surgery | DX: M79.672 Pain in left foot (principal); M72.2 Plantar fascial fibromatosis; M62.462 Contracture of muscle, left lower leg | CPT/HCPCS: 73630 ==

== ENCOUNTER 2025-10-11 14:28 | Emergency (ER) | payer MEDICAID, SELFPAY ==
[2025-10-11 14:31] VITALS: BP 141/85; PULSE 91; RESP 16; TEMP 36.8; O2SAT 97; BMI 40.7
--- NOTE | 2025-10-11 14:43 | ECG_ITS ---
[facility]11 Pat Name: Chandni Sanabria Department: Room: Gender: Female Duct Cleaner: : 1990 Requested By: Hilario Segundo Order Number: [id number] Anand MD: Chris Castaneda M.D. Measurements Intervals [place] Rate: 84 P: 48 CA: 157 QRS: 26 QRSD: 93 T: 20 QT: 361 QTc: 429 Interpretive Statements SINUS RHYTHM POSSIBLE LEFT ATRIAL ENLARGEMENT [-0.1mV P-WAVE IN V1/V2] No previous ECG available for comparison Electronically Signed On 10-13-2025 14:09:40 CLOTH INSPECTOR by Chris Castaneda M.D. [email or web address]
[2025-10-11 15:32] LABS: Hematocrit 38.4 % (36-47); Hemoglobin 12.30 g/dL (11.27-16.99); Mean Corpuscular HGB Conc 32.0 g/dL (30-55); Mean Corpuscular Hemoglobin 29.6 pg (27-33); Mean Corpuscular Volume 92.5 fl (85-98); Nucleated Red Blood Cells % 0 %; Platelet Count 324 10^3/cmm (157-399); Red Blood Count 4.15 10^6/uL (3.85-5.65); White Blood Count 9.87 10^3/uL (3.29-11.43)
[2025-10-11 15:50] LABS: HCG, Serum Qual Negative (Negative)
[2025-10-11 15:51] LABS: Anion Gap 13.6 (5-19); Blood Urea Nitrogen 12 mg/dL (6-20); Calcium 8.9 mg/dL (8.5-10.5); Carbon Dioxide 23 mmol/L (22-29); Chloride 107 mmol/L (98-107); Glucose 103 mg/dL (65-115); Osmolality Calculated 290 mOsm/kg (285-295); Potassium 3.6 mmol/L (3.5-5.1); Sodium 140 mmol/L (136-145)
--- NOTE | 2025-10-11 15:57 | XRR_ITS ---
PROCEDURE INFORMATION: Exam: XR Chest Exam date and time: 10/11/2025 3:58 PM Age: 35 years old Clinical indication: Other: Hypertension TECHNIQUE: Imaging protocol: Radiologic exam of the chest. Views: 1 view. COMPARISON: CT abdomen pelvis con [id number] 10/01/2024 5:33 PM FINDINGS: Lungs: No infiltrates. No suspicious masses or nodules. Pleural spaces: No pleural effusions or pneumothorax. Heart/Mediastinum: Heart size within normal limits. No pulmonary vascular congestion. Bones/joints: No significant osseous lesion. No fractures. XR/XR chest 1V portable [id number] IMPRESSION: No acute cardiopulmonary findings radiographically.
--- NOTE | 2025-10-11 16:01 | ED_ITS ---
HPI - Recheck/Abnormal Lab/Rx 2 General: Chief Complaint: Recheck/Abnormal Lab/Rx Stated Complaint: high bp Time Seen by Provider: 10/11/25 15:52 History of Present Illness: 35-year-old female presents emergency ro om concerned about her blood pressure being elevated. At home she had blood pressures reading 1 6 05/22 20s 150s over 115. She has not had any shortness of breath. She not currently on any medications. She has not had any fever sweats chills no cough. Blood pressure improved when she arrives here. No vision changes no difficulty speech or balance Related Data Previous Rx's ?Medication ?Instructions ?Recorded prednisone 10 mg tablet 10 mg PO DAILY #42 tabs 09/23 Allergies Allergy/AdvReac Type Severity Reaction Status Date / Time codeine Allergy nausea--has Verified 10/11/25 07:44 not taken hydrocodone Review of Systems 2 Const: Denies: fever(s) or chills Card: Denies: chest pain Resp: Denies: dyspnea GI: Denies: abdominal pain : Denies: dysuria, urinary frequency or urinary urgency Musc: Denies: neck pain or back pain Skin/Breast: Denies: rash PFSH ED 2 PFSH: Medical History No pertinent past medical history Denies diabetes, asthma, hypertension, seizures, DVT/PE PCP: None Surgical History Status post tubal ligation 04/30/2022--laparoscopic bilateral total [place] [facility] [place]Pathology showed benign changes with no malignancy, left paratubal cyst- benign Family History Grandmother Colon cancer Maternal grandmother, diagnosed in her 70s Family/Other Colon cancer Maternal aunt, diagnosed in her 50s Breast cancer maternal aunt, diagnosed in her 50s or 60s Denies family history of Ovarian cancer Diabetes Heart disease Hyperlipidemia Hypertension Uterine cancer Thyroid disease Stroke Social History Smoking and tobacco/nicotine status: never used tobacco/nicotine Alcohol intake: never Substance/Drug Use: never Physical Exam 2 Const: COMMON NORMALS: no acute distress GENERAL APPEARANCE: cooperative and comfortable ORIENTATION/CONSCIOUSNESS: Yes awake, Yes oriented to person, Yes oriented to place and Yes oriented to time HENMT: COMMON NORMALS: normocephalic, atraumatic and hearing grossly normal bilaterally HEAD & SCALP: normocephalic and atraumatic Resp: COMMON NORMALS: normal respiratory effort, No retractions, No use of accessory muscles and clear to auscultation bilaterally AUSCULTATION: clear to auscultation bilaterally Cardio: COMMON NORMALS: regular rate, regular rhythm and No murmurs present (Cardio) RATE: regular rate RHYTHM: regular rhythm GI: COMMON NORMALS: Soft to palpation and No hepatosplenomegaly present A USCULTATION: Yes normoactive bowel sounds PALPATION: Yes Soft to palpation, No Tenderness to palpation present (GI), No Guarding due to palpation present (GI) and Yes No hepatosplenomegaly present Extremity: COMMON NORMALS: normal to inspection, capillary refill normal, no clubbing, cyanosis or edema, no calf tenderness and no pedal edema Neuro: SENSORIUM/ORIENTATION: Yes oriented to person, Yes oriented to place and Yes oriented to time OTHER: No focal neurologic deficits noted no facial asymmetry strength and sensation normal in all extremities Skin: COMMON NORMALS: no rashes or lesions noted GENERAL SKIN EXAM: no rashes or lesions noted Course 2 Vital Signs: Vital signs: Vital Signs Temperature 98.2 F 10/11/25 14:31 Pulse Rate 91 10/11/25 14:31 Respiratory Rate 16 10/11/25 14:31 Blood Pressure 141/85 10/11/25 14:31 Pulse Oximetry 97 10/11/25 14:31 Oxygen Delivery Me thod Room Air 10/11/25 14:31 MDM - Recheck/Abnormal Lab/Rx Medical Decision Making Blood pressures essentially normotensive here laboratory tests EKG and chest x- ray unremarkable discharge patient home have her log blood pressures at home follow-up with primary care Medical Records I reviewed the patient's medical records. Lab Data I reviewed the patient's lab results. 10/11/25 15:24 10/11/25 15:24 Laboratory Results WBC 9.87 10^3/uL (3.29-11.43) 10/11/25 15:24 RBC 4.15 10^6/uL (3.85-5.65) 10/11/25 15: Hgb 12.30 g/dL (11.27-16.99) 10/11/25 15: Hct 38.4 % (36-47) 10/11/25 15:24 MCV 92.5 fl (85-98) 10/11/25 15: MCH 29.6 pg (27-33) 10/11/25 15: MCHC 32.0 g/dL (30-55) 10/11/25 15: RDW 13.2 % (12.1-15.1) 10/11/25 15: Plt Count 324 10^3/cmm (157-399) 10/11/25 15: MPV 9.8 fL (7.4-10.4) 10/11/25 15: Neut % (Auto) 73.6 % 10/11/25 15: Lymph % (Auto) 18.5 % 10/11/25: [place] % (Auto) 6.2 % 10/11/25: Eos % (Auto) 0.9 % 10/11/25: Baso % (Auto) 0.4 % 10/11/25: Neut # (Auto) 7.26 10^3/uL (1.8-7.7) 10/11/25 15: Lymph # (Auto) 1.8 10^3/uL (0.8-4.8) 10/11/25 15: [place] # (Auto) 0.6 10^3/uL (0.2-0.9) 10/11/25: Eos # (Auto) 0.1 10^3/uL (0.0-0.8) 10/11/25 15:24 Baso # (Auto) 0.0 10^3/uL (0.0-0.1) 10/11/25: Nucleated RBC % (auto) 0 % 10/11/25 15: Nucleated RBCs # 0.0 /100WBC 10/11/25 15:24 Sodium 140 mmol/L (136-145) 10/11/25 15: Potassium 3.6 mmol/L (3.5-5.1) 10/11/25 15:24 Chloride 107 mmol/L (98-107) 10/11/25 15:24 Carbon Dioxide 23 mmol/L (22-29) 10/11/25 15:24 Anion Gap 13.6 (5-19) 10/11/25 15:24 BUN 12 mg/dL (6-20) 10/11/25 15:24 Creatinine 0.8 mg/dL (0.5-0.9) 10/11/25 15:24 GFR Calculation 82.6 mL/min (90-130) L 10/11/25 15:24 Glucose 103 mg/dL (65-115) 10/11/25 15:24 Calculated Osmolality 290 mOsm/kg (285-295) 10/11/25 15:24 Calcium 8.9 mg/dL (8.5-10.5) 10/11/25 15:24 HCG, Qual Negative (Negative) 10/11/25 15:24 XR interpretation done by ED provider, pending radiology final review ED provider radiology interpretation(s): EKG no acute findings no infiltrates no effusions no cardiomegaly osseous structures normal. EKG Data EKG 1: I personally reviewed and interpreted this EKG as follows: Interpretation: EKG 10/11/2025 1608 sinus rhythm rate of 84 WI interval 157 QTc 402. No previous EKGs for comparison. Discharge Plan Discharge Patient Disposition: Home Clinical Impression: Elevated blood pressure reading Condition: Stable Prescriptions: No Action prednisone 10 mg tablet 10 mg PO DAILY Qty: 42 0RF Discharge Orders: Discharge ED (Routine); Ordered 10/11/25 Ordered By: Khari Hardin Referrals: Hernando Dillon MD [Primary Care Provider, [facility]] Discharge Diet: Usual diet Discharge Activity: Resume usual activity Patient Instructions: Opioid Safety, Pain Management, Patient Portal & Den Instructions Activity Restrictions/Additional Instructions: [facility]. It is very important that you follow up as instructed or that you return to the Emergency Department should you have concerns or if your condition changes or worsens in any way. Emergency department visits are focused on emergent conditions, in some cases you may require further evaluation on an outpatient basis. You were seen in the emergency room with concerns of your blood pressure. It had improved with time he arrived here laboratory tests EKG and chest x-ray did not show any acute abnormalities. Recommend you continue to monitor your blood pressure keep a log of your blood pressures and follow-up with your primary care doctor they can make recommendations on whether or not you should be started on blood pressure medications at this time would not recommend initiating any blood pressure medicines. (Please note that included in your discharge packet is information concerning opioid safety and pain management. This information is given to all patients were discharged from the ER regardless of their discharge diagnosis or the medicines they usually take or are prescribed.) Print Language: Togolese Coding Level of Care Code ED Wet Process Miller Head Assistant for Nereida Major
[2025-10-11 16:32] VITALS: BP 125/85; PULSE 91; RESP 16; O2SAT 98
== END 2025-10-11 16:32 | disposition home or self-care (01) ==
PROVIDERS: Emergency Medicine; Emergency Provider Family Medicine; PCP Family Medicine
DX: R03.0 Elevated blood-pressure reading, without diagnosis of hypertension (principal)
CPT/HCPCS: 36415; 71045; 80048; 84703; 85025; 93005; 99285